=== PATIENT | female | born 1970 | race Caucasian/White ===

== ENCOUNTER 2018-02-01 09:21 | Outpatient (RCR) | payer OTHER, SELFPAY ==
--- NOTE | 2018-02-01 13:12 | PTDS_ITS ---
Date: February 01, 2018 Referring: Marcy Ewing NP Diagnosis: joint stiffness/hands Subjective: History of Present Illness: Marilee reports compliancy with her forearm stretches, as well as working with her putty and foam cube. Continues to suffer from intermittent joint pain in the DIPs, digits #2 through #5, right worse than left. We discussed purchasing a paraffin bath for home use. She is traveling to [place], and will into this later today. Objective: ROM: AROM is WNL. She is able to make a full fist. 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 Treatment: Paraffin was applied to bilateral hands x10 minutes at no charge. Therapeutic procedure: [id number] x2 Reviewed patient's HEP upgrading with higher level blue theracube for barrel raiser strengthening purposes. Treatment Time: 9:30 til 10:00 A.M. Assessment: Not really much else to offer, at this point, regarding her arthritic pain, other than palliative care via paraffin bath. She does take Aleve with good benefit (PRN). Admits that her symptoms aren't constant. No observable swelling. Don't really see any soft tissue restrictions with forearm flexor or extensor musculature. Plan: Discharge from formal P.T. Thank you for this referral!
== END 2018-02-18 23:59 | disposition home or self-care (01) ==
LOC: PT 09:21
PROVIDERS: PCP Family Medicine; Referring Provider Nurse Practitioner Family; Visit Provider Nurse Practitioner Family
DX: M25.641 Stiffness of right hand, not elsewhere classified (principal); M25.642 Stiffness of left hand, not elsewhere classified; M19.041 Primary osteoarthritis, right hand; M19.042 Primary osteoarthritis, left hand
CPT/HCPCS: 97110

== ENCOUNTER 2019-01-24 01:31 | Outpatient (CLI) | payer OTHER, SELFPAY ==
[2019-01-24 10:19] LABS: C-Reactive Protein 0.23 mg/dL (0.0-0.3)
[2019-01-25 10:50] LABS: Rheumatoid Factor <8 IU/mL (<12.5)
== END 2019-01-24 01:51 ==
DX: M25.541 Pain in joints of right hand (principal); M25.542 Pain in joints of left hand
CPT/HCPCS: 36415; 86140; 86431

== ENCOUNTER 2019-03-06 00:38 | Outpatient (CLI) | payer OTHER, SELFPAY ==
--- NOTE | 2019-03-06 08:45 | DI.MAMMO_ITS ---
SYMPTOM/DIAGNOSIS: SCREENING, Z12.31 MAMMOGRAMS: Mammograms were interpreted according to the usual protocol including computer analysis with CAD system, tomosynthesis and C view imaging. The breast tissue is heterogeneously radiodense which lowers the sensitivity of the study. There is no dominant mass. There are no suspicious calcifications and there has been no significant interval change when compared with prior images. SUMMARY: No evidence of malignancy, category 1. Yearly screening mammography is recommended. Breast density, Category C. SA ASSESSMENT OF FINDINGS: Negative. Category 1. Patient will receive a letter notifying them of these results. Bi-RADS category C. The breasts are heterogeneously dense, which may obscure small masses.
== END 2019-03-06 00:58 ==
DX: Z12.31 Encounter for screening mammogram for malignant neoplasm of breast (principal)
CPT/HCPCS: 77063; 77067

== ENCOUNTER 2020-01-25 10:55 | Outpatient (REF) | payer OTHER, SELFPAY ==
[2020-01-25 13:43] LABS: Calculated LDL 147 mg/dL (<100); Cholesterol 209 mg/dL (<200); HDL Cholesterol 45 mg/dL (40-60); Triglyceride 86 mg/dL (<150)
[2020-01-25 13:56] LABS: Hemoglobin A1C 5.5 % (3.8-5.6)
== END 2020-01-25 11:15 ==
LOC: LBN 10:55
PROVIDERS: PCP Nurse Practitioner; Visit Provider Nurse Practitioner
DX: Z13.1 Encounter for screening for diabetes mellitus (principal); Z13.6 Encounter for screening for cardiovascular disorders
CPT/HCPCS: 80061; 83036

== ENCOUNTER 2020-03-07 01:13 | Outpatient (CLI) | payer OTHER, SELFPAY ==
--- NOTE | 2020-03-07 07:45 | DI.MAMMO_ITS ---
EXAM: MAMMO SCREENING CLINICAL HISTORY: screening,z12.39 TECHNIQUE: Mammograms were interpreted according to the usual protocol including computer analysis w [facility] CAD system, tomosynthesis and C-view imaging. COMPARISON: FINDINGS: The breasts heterogeneously dense. No dominant mass or clumped microcalcification is identified in e ither breast. The current examination is compared with previous examinations including February and there has been no gross interval change in appearance in comparison with the prior studies. IMPRESSION: No specific evidence of malignancy at this time. Routine screening examinations are suggested at yea rly intervals in this age group according to the ACS ACR guidelines. BI-RADS Category 1 - Negative Breast Density - Category C - Heterogeneously dense
== END 2020-03-07 01:33 ==
PROVIDERS: PCP Nurse Practitioner; Visit Provider Nurse Practitioner
DX: Z12.31 Encounter for screening mammogram for malignant neoplasm of breast (principal); R92.2 Inconclusive mammogram
CPT/HCPCS: 77063; 77067

== ENCOUNTER 2020-04-26 20:33 | Emergency (ER) | payer SELFPAY ==
[2020-04-26 20:38] VITALS: BP 140/103; PULSE 108; RESP 18; TEMP 36.6; O2SAT 95
[2020-04-26] MEDS: Acetaminophen 325 MG TAB 650 MG PO (20:53)
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
--- NOTE | 2020-04-26 21:48 | NUR.NOTE ---
patient returned from xray awaiting diagnostics. patient reports knee does not really hurt. ice is applied Nursing Note:
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
== END 2020-04-26 22:25 | disposition home or self-care (01) ==
PROVIDERS: Emergency Provider Student in an Organized Health Care Education/Training Program; PCP Nurse Practitioner
DX: S80.02XA Contusion of left knee, initial encounter (principal); Y04.8XXA Assault by other bodily force, initial encounter; Y99.0 Civilian activity done for income or pay
CPT/HCPCS: 73562; 99283

== ENCOUNTER 2022-03-06 14:25 | Outpatient (REF) | payer OTHER, SELFPAY ==
--- NOTE | 2022-03-06 14:00 | PAPFT_PTH ---
PATIENT: Marilee Escalera LOC: [facility] U#:[id number] AGE/SX: 51/F ROOM: RE03/06/[address]: hCristianne Parekh : 1970 BED: DIS: 03/06/2022 SPEC #: [id number] RECD: 03/09/22 12:35 STATUS: ELVA RENadeem #: [id number] SUPA: 03/06/22 14:[address]: Christianne Parekh DEPT: [facility] Cytology RECD BY: Maria G Carreno ENTERED: 03/09/22 12:35 SP TYPE: PAPFT [place] DR: Andreina Valentine, PhD SERVICES EXECUTIVE Tissues: 1 - CX/ENDOCX FOR PAP SMEARS Procedures: PAP THIN PREP/UVM Screening HPV DNA PROBE Comments: [id number]
== END 2022-03-06 14:26 | disposition home or self-care (01) ==
LOC: LBN 14:25
PROVIDERS: PCP Nurse Practitioner; Visit Provider Family Medicine
DX: Z12.4 Encounter for screening for malignant neoplasm of cervix (principal); Z11.51 Encounter for screening for human papillomavirus (HPV)
CPT/HCPCS: 88142; 87624

== ENCOUNTER 2022-07-14 11:47 | Outpatient (REF) | payer OTHER, SELFPAY ==
--- NOTE | 2022-07-14 17:30 | SKI_PTH ---
PATIENT: Marilee Escalera LOC: [facility] U#:[id number] AGE/SX: 52/F ROOM: RE07/14/[address]: Camilo Maya DNP : 1970 BED: DIS: 07/14/2022 SPEC #: [id number] RECD: 07/15/22 12:28 STATUS: ELVA MARTINEZ #: [id number] SUPA: 07/14/22 17:[address]: Camilo Elise DEPT: Surgical Specimen RECD BY: Maria G Carreno Tissues: 1 - SKIN BIOPSY(SHAVE/PUNCH) Procedures: SKIN LEVEL 4 Comments: [id number]
== END 2022-07-14 11:48 | disposition home or self-care (01) ==
LOC: LBN 11:47
PROVIDERS: PCP Nurse Practitioner Family; Visit Provider Nurse Practitioner Family
DX: L82.1 Other seborrheic keratosis (principal); N64.89 Other specified disorders of breast
CPT/HCPCS: 88305

== ENCOUNTER 2022-07-24 01:22 | Outpatient (CLI) | payer OTHER, SELFPAY ==
[2022-07-24 07:15] LABS: HCT 38.9 % (36.0-46.0); HGB 13.2 g/dL (11.2-15.7); MCH 29.2 pg (27.0-33.0); MCHC 33.9 % (32.0-36.0); MCV 86 fL (80-95); MPV 10.3 fL (8.0-11.0); Platelet Count 247 10^3/uL (130-400); RBC 4.52 10^6/uL (3.93-5.22); RDW 12.3 % (11.7-14.6); RDW-SD 38.6 fL; WBC 4.56 10^3/uL (4.4-10.8)
[2022-07-24 07:56] LABS: ALT 28 U/L (14-59); AST 21 U/L (15-37); Albumin 4.1 g/dL (3.4-5.0); Alkaline Phosphatase 155 U/L (46-116); Anion Gap 6.7 mmol/L (3-11); BUN 16 mg/dL (7-18); Bilirubin, Total 0.4 mg/dL (0.2-1.0); CO2 30.3 mmol/L (21.0-32.0); CREATININE 0.8 mg/dL (0.55-1.02); Calcium 9.5 mg/dL (8.5-10.1); Chloride 104 mmol/L (98-107); Estimated GFR 89.15 (mL/min/1.73m2); Glucose 107 mg/dL (74-106); Potassium 3.5 mmol/L (3.5-5.1); Sodium 141 mmol/L (136-145); TSH (W/Ref FT4) 2.89 uIU/mL (0.36-3.74); Total Protein 7.5 g/dL (6.4-8.2)
[2022-07-24 09:12] LABS: Lab Add On Test DONE
[2022-07-24 09:35] LABS: Hemoglobin A1C 5.2 % (<5.7)
== END 2022-07-24 01:23 | disposition home or self-care (01) ==
LOC: LBO 01:22
PROVIDERS: PCP Nurse Practitioner Family; Visit Provider Nurse Practitioner Family
DX: R73.9 Hyperglycemia, unspecified (principal); R53.83 Other fatigue
CPT/HCPCS: 36415; 80053; 85027; 83036; 84443

== ENCOUNTER 2022-08-13 15:21 | Outpatient (REF) | payer OTHER, SELFPAY ==
[2022-08-13 21:02] LABS: Bilirubin Negative (Negative); Blood Trace-lysed (Negative); Clarity Clear (Clear); Glucose Negative (Negative); Ketones Negative (Negative); Leukocyte Esterase Trace (Negative); Nitrite Negative (Negative); Urobilinogen 0.2 mg/dL (Up to 0.2)
[2022-08-13 21:12] LABS: Bacteria Few HPF (Negative); C & S Indicated? Yes; Casts Negative LPF (Negative); Crystals Negative HPF (Negative); Epithelial Cells Few HPF (Negative); Mucus Negative (Negative); RBC 0-2 HPF (0-2)
== END 2022-08-13 15:22 | disposition home or self-care (01) ==
LOC: LBN 15:21
PROVIDERS: PCP Nurse Practitioner Family; Visit Provider Nurse Practitioner Family
DX: N89.8 Other specified noninflammatory disorders of vagina (principal); R39.89 Other symptoms and signs involving the genitourinary system; R39.15 Urgency of urination
CPT/HCPCS: 81003; 81015; 87086; 87480; 87510; 87660

== ENCOUNTER 2024-08-23 03:45 | Outpatient (CLI) | payer OTHER, SELFPAY ==
[2024-08-23 12:58] LABS: ALT 22 U/L (14-59); AST 19 U/L (15-37); Albumin 3.8 g/dL (3.4-5.0); Alkaline Phosphatase 170 U/L (46-116); Anion Gap 7.4 mmol/L (3-11); BUN 12 mg/dL (7-18); Bilirubin, Total 0.39 mg/dL (0.2-1.0); CO2 29.6 mmol/L (21.0-32.0); CREATININE 0.9 mg/dL (0.55-1.02); Calcium 9.4 mg/dL (8.5-10.1); Calculated LDL 128 mg/dL (<100); Chloride 106 mmol/L (98-107); Cholesterol 190 mg/dL (<200); Estimated GFR 76.44 (mL/min/1.73m2); Glucose 99 mg/dL (74-106); HDL Cholesterol 53 mg/dL (>or=50); Potassium 3.8 mmol/L (3.5-5.1); Sodium 143 mmol/L (136-145); Total Protein 7.5 g/dL (6.4-8.2); Triglyceride 45 mg/dL (<150)
[2024-08-23 18:34] LABS: Hepatitis C Ab w Rflx HCV PCR Negative (Negative)
[2024-08-23 19:34] LABS: HBs Antibody, Quant <3.1 mIU/mL (See Note); Hep B Surface Ab Negative (See Note); Hepatitis B Core Antibody Negative (Negative); Hepatitis B Surface Antigen Negative (Negative)
[2024-08-23 21:21] LABS: HIV-1/2 Ag & Ab Screen Negative (Negative)
== END 2024-08-23 03:46 | disposition home or self-care (01) ==
PROVIDERS: PCP Nurse Practitioner Family; Visit Provider Nurse Practitioner Family
DX: Z11.4 Encounter for screening for human immunodeficiency virus [HIV] (principal); Z00.00 Encounter for general adult medical examination without abnormal findings; Z11.59 Encounter for screening for other viral diseases
CPT/HCPCS: 36415; 80053; 80061; 86704; 86706; 86803; 87340; 87389

== ENCOUNTER 2024-09-19 08:57 | Outpatient (CLI) | payer OTHER, SELFPAY ==
[2024-09-19 12:25] LABS: HCT 38.9 % (36.0-46.0); HGB 13.2 g/dL (11.2-15.7); MCH 29.1 pg (27.0-33.0); MCHC 33.9 % (32.0-36.0); MCV 86 fL (80-95); MPV 10.4 fL (8.0-11.0); Platelet Count 273 10^3/uL (130-400); RBC 4.53 10^6/uL (3.93-5.22); RDW 12.3 % (11.7-14.6); RDW-SD 38.5 fL; WBC 4.95 10^3/uL (4.4-10.8)
[2024-09-19 12:52] LABS: Iron 116 ug/dL (50-170)
[2024-09-19 13:02] LABS: Ferritin 105 ng/mL (8-252); TSH (W/Ref FT4) 3.38 uIU/mL (0.36-3.74)
== END 2024-09-19 08:58 | disposition home or self-care (01) ==
LOC: LOS 08:57
PROVIDERS: PCP Nurse Practitioner Family; Referring Provider Nurse Practitioner Family; Visit Provider Nurse Practitioner Family
DX: G25.81 Restless legs syndrome (principal); R63.8 Other symptoms and signs concerning food and fluid intake
CPT/HCPCS: 36415; 85027; 82728; 83540; 84443

== ENCOUNTER 2025-03-09 16:38 | Outpatient (REF) | payer OTHER, SELFPAY ==
[2025-03-09 21:18] LABS: Abs Immature Grans 0.02 10^3/uL (0.0-0.06); HCT 37.2 % (36.0-46.0); HGB 12.9 g/dL (11.2-15.7); Immature Grans % 0.3 %; MCH 29.5 pg (27.0-33.0); MCHC 34.7 % (32.0-36.0); MCV 85 fL (80-95); MPV 10.6 fL (8.0-11.0); Platelet Count 260 10^3/uL (130-400); RBC 4.38 10^6/uL (3.93-5.22); RDW 12.1 % (11.7-14.6); RDW-SD 37.3 fL; WBC 6.85 10^3/uL (4.4-10.8)
[2025-03-09 21:23] LABS: ESR 17 mm/hr (0-30)
[2025-03-09 21:26] LABS: Uric Acid 3.4 mg/dL (2.6-6.0)
[2025-03-09 21:47] LABS: C-Reactive Protein < 0.50 mg/dL (<or=0.5)
== END 2025-03-09 16:39 | disposition home or self-care (01) ==
LOC: LBN 16:38
PROVIDERS: PCP Nurse Practitioner Family; Visit Provider Nurse Practitioner Family
DX: M25.50 Pain in unspecified joint (principal)
CPT/HCPCS: 85652; 84550; 85025; 86140

== ENCOUNTER 2025-03-30 00:40 | Outpatient (CLI) | payer OTHER, SELFPAY ==
[2025-03-30 16:12] LABS: ESR 5 mm/hr (0-30)
[2025-03-30 16:24] LABS: C-Reactive Protein < 0.50 mg/dL (<or=0.5)
== END 2025-03-30 00:41 | disposition home or self-care (01) ==
LOC: LOS 00:41
PROVIDERS: PCP Nurse Practitioner Family; Visit Provider Nurse Practitioner Family
DX: M79.641 Pain in right hand (principal); M79.642 Pain in left hand
CPT/HCPCS: 36415; 85652; 86200; 86038; 86140; 86431